=== PATIENT | male | born 1995 | race Caucasian/White ===

== ENCOUNTER 2017-06-12 20:53 | Emergency (ER) | payer BC ==
[~2017-06-12] VITALS: Ht 180.3 cm; Wt 81.9 kg
[2017-06-12 20:56] VITALS: Ht 180.3 cm; Wt 81.9 kg
[2017-06-12] MEDS ORDERED: MELA1TAB3 PO (21:30)
[2017-06-12] MEDS ORDERED: ONDANSETRON INJ 2 MG/ML 2 ML VIAL IV STA ×2 (21:38→23:24)
[2017-06-12] MEDS ORDERED: SODIUM CHLORIDE 0.9% 1000ML 1,000 ML IV STA (21:38)
[2017-06-12 21:46] LABS: BASO % 0.1 %; BASO ABS # 0.01 K/uL (0-0.2); COMPLETE YES; EOS % 1.8 %; HEMATOCRIT 46.6 % (42-52); IG% 0.3 %; LYMPH % 8.8 %; LYMPH ABS # 0.64 K/uL (1.2-3.4); MEAN CELL VOLUME 88.1 fL (80-100); MEAN CORPUSCULAR HEMOGLOBIN 30.6 pg (25-34); MEAN CORPUSCULAR HGB CONC 34.8 g/dl (32-36); MEAN PLATELET VOLUME 10.8 fL (7.4-10.4); PLATELET COUNT 189 K/uL (130-400); RED BLOOD COUNT 5.29 M/uL (4.7-6.1); WHITE BLOOD COUNT 7.27 K/uL (4.8-10.8)
--- NOTE | 2017-06-12 21:49 | EMERGENCY ROOM VISIT NOTE ---
History Report prepared by Pepe: Christi Rodriguez Under the Supervision of: Dr. Yoselyn Garcia M.D. First contact with patient: 21:08 Chief Complaint: VOMITING Stated Complaint: VOMIT W/BLOOD,DIARRHEA, FEVER,HEADACHE,CHILLS Nursing Triage Summary: Pt reports vomiting since 0600. called tele nurse. "it's the color of Oatmeal". unable to keep fluids down, associated diarrhea. Generalized abd pain History of Present Illness The patient is a 22 year old male who presents to the Emergency Room with complaints of intermittent vomiting beginning 15 hours ago. The patient states that he has been vomiting intermittently since this morning and notes that he has had some blood in his vomit. He reports that he is not able to keep any fluids down. He complains of fever, diaphoresis, headache, abdominal pain, nausea, and diarrhea. The patient notes that he did eat lobster yesterday for the first time at a friends house and no one else is sick. Source of History: patient Onset: 15 hours ago Position: other (global) Quality: other (vomiting) Timing: intermittent Associated Symptoms: + fevers, + headache, + nausea, + abdominal pain, + diarrhea Review of Systems See HPI for pertinent positives & negatives. A total of 10 systems reviewed and were otherwise negative. Past Medical & Surgical Medical Problems: (1) No Known Active Medical Problems Family History No pertinent family history stated. Social History Smoking Status: Never Smoker Marital Status: single Housing Status: lives with roommate Occupation Status: [employer] student Current/Historical Medications Scheduled PRN Melatonin-Pyridoxine (Melatonin), 5 MG PO HS PRN for Sleep Allergies Coded Allergies: No Known Allergies (Unverified , 06/12/17) Physical Exam Vital Signs Date Time Temp Pulse Resp B/P (MAP) Pulse Ox O2 Delivery O2 Flow Rate FiO2 06/13/17 01:10 38.5 104 22 94 06/13/17 01:01 100/53 06/13/17 00:06 104 24 94 06/13/17 00:01 114/57 06/12/17 23:58 103 16 94 06/12/17 23:53 106 24 96 06/12/17 23:21 116/58 06/12/17 23:01 100/60 06/12/17 22:53 97 27 97 06/12/17 22:20 95 06/12/17 22:02 124/72 06/12/17 22:02 86 20 124/72 97 Room Air 06/12/17 20:56 37.8 111 18 130/84 95 Room Air Physical Exam Vital signs reviewed. General: Well-appearing male, in no significant distress. HEENT: No scleral icterus, PERRLA, neck supple. Atraumatic. No meningeal signs. Cardiovascular: Regular rate and rhythm, no extra sounds. Pulmonary: Clear to auscultation bilaterally, normal work of breathing. Abdomen: Soft, nontender, nondistended, positive bowel sounds. Musculoskeletal: Atraumatic, no peripheral edema. Neurologic: Patient awake alert and oriented x 3, full strength in all 4 extremities. Cranial nerves 2 through 12 grossly intact. Skin: Warm, dry, no rash Medical Decision & Procedures Laboratory Results 06/12/17 21:25 Red Blood Count 5.29, Mean Corpuscular Volume 88.1, Mean Corpuscular Hemoglobin 30.6, Mean Corpuscular Hemoglobin Concent 34.8, Mean Platelet Volume 10.8, Neutrophils (%) (Auto) 84.0, Lymphocytes (%) (Auto) 8.8, Monocytes (%) (Auto) 5.0, Eosinophils (%) (Auto) 1.8, Basophils (%) (Auto) 0.1, Neutrophils # (Auto) 6.11, Lymphocytes # (Auto) 0.64, Monocytes # (Auto) 0.36, Eosinophils # (Auto) 0.13, Basophils # (Auto) 0.01 06/12/17 21:25 Test 06/12/17 21:25 06/12/17 22:16 White Blood Count 7.27 K/uL (4.8-10.8) Red Blood Count 5.29 M/uL (4.7-6.1) Hemoglobin 16.2 g/dL (14.0-18.0) Hematocrit 46.6 % (42-52) Mean Corpuscular Volume 88.1 fL (80-100) Mean Corpuscular Hemoglobin 30.6 pg (25-34) Mean Corpuscular Hemoglobin Concent 34.8 g/dl (32-36) Platelet Count 189 K/uL (130-400) Mean Platelet Volume 10.8 fL (7.4-10.4) Neutrophils (%) (Auto) 84.0 % Lymphocytes (%) (Auto) 8.8 % Monocytes (%) (Auto) 5.0 % Eosinophils (%) (Auto) 1.8 % Basophils (%) (Auto) 0.1 % Neutrophils # (Auto) 6.11 K/uL (1.4-6.5) Lymphocytes # (Auto) 0.64 K/uL (1.2-3.4) Monocytes # (Auto) 0.36 K/uL (0.11-0.59) Eosinophils # (Auto) 0.13 K/uL (0-0.5) Basophils # (Auto) 0.01 K/uL (0-0.2) RDW Standard Deviation 38.8 fL (36.4-46.3) RDW Coefficient of Variation 12.2 % (11.5-14.5) Immature Granulocyte % (Auto) 0.3 % Immature Granulocyte # (Auto) 0.02 K/uL (0.00-0.02) Anion Gap 7.0 mmol/L (3-11) Est Creatinine Clear Calc Drug Dose 111.2 ml/min Estimated GFR () 109.1 Estimated GFR (Non- 94.1 BUN/Creatinine Ratio 17.5 (10-20) Calcium Level 8.7 mg/dl (8.5-10.1) Magnesium Level 2.1 mg/dl (1.8-2.4) Total Bilirubin 0.7 mg/dl (0.2-1) Direct Bilirubin 0.1 mg/dl (0-0.2) Aspartate Amino Transf (AST/SGOT) 21 U/L (15-37) Alanine Aminotransferase (ALT/SGPT) 22 U/L (12-78) Alkaline Phosphatase 92 U/L (45-117) Total Protein 7.4 gm/dl (6.4-8.2) Albumin 4.1 gm/dl (3.4-5.0) Lipase 86 U/L (73-393) Urine Color YELLOW Urine Appearance CLEAR (CLEAR) Urine pH 6.0 (4.5-7.5) Urine Specific [place] 1.018 (1.000-1.030) Urine Protein NEG (NEG) Urine Glucose (UA) NEG (NEG) Urine Ketones 1+ (NEG) Urine Occult Blood 1+ (NEG) Urine Nitrite NEG (NEG) Urine Bilirubin NEG (NEG) Urine Urobilinogen NEG (NEG) Urine Leukocyte Esterase NEG (NEG) Urine WBC (Auto) 0 /hpf (0-5) Urine RBC (Auto) 0-4 /hpf (0-4) Urine Hyaline Casts (Auto) 0 /lpf (0-5) Urine Epithelial Cells (Auto) 0-5 /lpf (0-5) Urine Bacteria (Auto) NEG (NEG) Laboratory results per my review. Medications Administered Medications (Trade) Dose Ordered Sig/[place] Route Start Time Stop Time Status Last Admin Dose Admin Sodium Chloride 1,000 ml @ 999 mls/hr Q1H1M STAT IV 06/12/17 21:38 06/12/17 22:38 DC 06/12/17 21:59 999 MLS/HR Ondansetron HCl (Zofran Inj) 4 mg NOW STAT IV 06/12/17 21:38 06/12/17 21:40 DC 06/12/17 21:59 4 MG Acetaminophen (Tylenol Tab) 650 mg NOW STAT PO 06/12/17 23:07 06/12/17 23:09 DC 06/13/17 00:16 650 MG Ondansetron HCl (Zofran Inj) 4 mg NOW STAT IV 06/12/17 23:24 06/12/17 23:25 DC 06/12/17 23:57 4 MG Promethazine HCl 12.5 mg/Sodium Chloride 50.5 ml @ 204 mls/hr NOW STAT IV 06/13/17 00:38 06/13/17 00:52 DC 06/13/17 00:45 204 MLS/HR Ondansetron HCl (ZOFRAN ODT 4MG Home Pack) 1 homepack UD ONCE PO 06/13/17 00:45 06/13/17 00:46 DC 06/13/17 01:05 1 [facility] ED Course 2108: Past medical records reviewed. The patient was evaluated in room B10. A complete history and physical examination was performed. 8: Zofran Inj 4mg IV, Sodium Chloride 1000 ml @ 999 mls/hr IV. 2307: Tylenol Tab 650mg PO. 2324: Zofran Inj 4mg IV. 0038: Promethazine HCl 12.5mg/Sodium Chloride 50.5ml@ 204mls/hr IV. 0444: I reevaluated and updated the patient. 0045: Ondansetron HCl 1 homepack PO. 0111: Upon reevaluation, the patient appeared to have improvement of his symptoms. I discussed findings with the patient. He verbalized agreement of the treatment plan. The patient was discharged home. Medical Decision Differential diagnosis: Etiologies such as gastroenteritis, food borne illness, infections, appendicitis , diverticulitis, inflammatory bowel disease, obstruction, GI bleed, biliary pathology, as well as others were entertained. This patient was evaluated and appeared to be in some discomfort. IV access was obtained and laboratory work was drawn. Patient was hydrated normal saline solution, given IV Zofran for his discomfort. He is noted to be mildly febrile and given oral Tylenol. He did require additional Zofran. Laboratory work is fairly unrevealing. Stool sample was obtained, C. difficile is negative, cultures are pending. Patient complained of mild additional nausea and was given Phenergan 12.5 mg IV. He was discharged follow-up with his primary care physician and return to the ER for worsening of symptoms or any medical concerns. Medication Reconcilliation Current Medication List: was personally reviewed by me Blood Pressure Screening Patient's blood pressure: Normal blood pressure Blood pressure disposition: Did not require urgent referral Impression Primary Impression: Nausea, vomiting, and diarrhea Scribe Attestation The scribe's documentation has been prepared under my direction and personally reviewed by me in its entirety. I confirm that the note above accurately reflects all work, treatment, procedures, and medical decision making performed by me. Departure Information Dispostion Home / Self-Care Referrals No Doctor, Assigned (PCP) Forms HOME CARE DOCUMENTATION FORM, IMPORTANT VISIT INFORMATION Patient Instructions My [facility] Additional Instructions Diagnosis: Nausea, vomiting and diarrhea Zofran 4 mg ODT every 6 hours as needed for nausea. Take sips of clear fluids, advance diet very slowly as tolerated. BRAT diet: Bananas, rice, applesauce and toast. Follow-up with your physician this week for reevaluation. Return to the ER for worsening of symptoms or any medical concerns.
[2017-06-12 22:04] LABS: BUN/CREATININE RATIO 17.5 (10-20); CALCIUM 8.7 mg/dl (8.5-10.1); CREATININE 1.1 mg/dl (0.60-1.40); MAGNESIUM 2.1 mg/dl (1.8-2.4); POTASSIUM 3.8 mmol/L (3.5-5.1)
[2017-06-12] MEDS ORDERED: ACETAMINOPHEN 325 MG TAB PO STA (23:07)
[2017-06-13] LABS: URINE APPEARANCE CLEAR (CLEAR); URINE BILIRUBIN NEG (NEG); URINE COLOR YELLOW; URINE EPITHELIAL CELL AUTO 0-5 /lpf (0-5); URINE NITRITE NEG (NEG); URINE SPECIFIC GRAVITY 1.018 (1.000-1.030); UROBILINOGEN NEG (NEG); ZZUR CULT IF INDIC CLEAN CATCH NO
[2017-06-13 00:02] LABS: MANUAL MICROSCOPIC REQUIRED? NO; REVIEW REQ? NO
[2017-06-13] MEDS ORDERED: PROMETHAZINE HCL INJ 12.5 MG in SODIUM CHLORIDE 0.9% 50ML 50 ML IV STA (00:38)
[2017-06-13] MEDS ORDERED: ONDANSETRON HOME PACK 4MG OD TAB PO ONE (00:45)
[2017-06-13 01:01] VITALS: BP 100/53
[2017-06-13 01:10] VITALS: PULSE 104; TEMP 38.5; O2SAT 94
== END 2017-06-13 01:10 | disposition home or self-care (01) ==
LOC: C.EDB 20:55
DX: R11.0 Nausea (principal); R19.7 Diarrhea, unspecified